=== PATIENT | female | born 1985 | race African-American/Black ===

== ENCOUNTER 2019-01-22 11:00 | Inpatient (IN) | payer OTHER ==
[2019-01-22 12:29] VITALS: BMI 29.8
[2019-01-22] MEDS ORDERED: OXYTOCIN 20 UNITS in 0.9% NS 20 UNIT/1,000 ML INFUS.BAG IV ONE ×2 (13:14→14:54)
[2019-01-22] MEDS ORDERED: PHENYLEPHRINE HCL 10 MG/1 ML SINGLE DOSE VIAL ONE ×2 (13:16)
[2019-01-22] MEDS ORDERED: ceFAZolin SODIUM 1 GM VIAL ONE ×2 (13:16)
[2019-01-22] MEDS ORDERED: morphine SULFATE/PF 0.5 MG/ML (2cc Syringe - QUVA) ONE (13:16)
[2019-01-22] MEDS ORDERED: SODIUM CHLORIDE 0.9% P/F 10 ML VIAL IJ ONE (13:19)
[2019-01-22] MEDS ORDERED: OXYTOCIN 10 UNITS/ML VIAL ONE ×2 (13:55→13:59)
[2019-01-22] MEDS ORDERED: KETOROLAC TROMETHAMINE 30 MG/1 ML VIAL ONE (14:00)
--- NOTE | 2019-01-22 14:25 | PN ---
Progress Note (short form) - Note Progress Note: I assisted Dr. Pascal in repeat c/s for the entirety of the case.
[2019-01-22] MEDS ORDERED: CITRIC ACID/SODIUM CITRATE 30 ML UNIT-DOSE CUP PO ONE (14:46)
--- NOTE | 2019-01-22 14:53 | HP ---
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: Other Cardiovascular: No: AFIB, Aneurysm, Aortic Insufficiency, Aortic Stenosis, CAD, CHF, Deep Vein Thrombosis, HTN, Hyperlipdemia, [place], Mitral Insufficiency, Mitral Stenosis, Murmur, Pulmonary Hypertension, Other Pulmonary: No: Asthma, Bronchitis, Cancer, COPD, O2 Dependent, Pneumonia, Previously Intubated, Pulmonary Embolus, Pulmonary Fibrosis, Sleep Apnea, Other Gastrointestinal: No: Ascites, Cancer, Constipation, Crohn's Disease, Diverticulitis, Diverticulosis, Esophageal Varices, Gastritis, GERD, GI Bleed, Hemorrhoids, Hiatal Hernia, Inflamatory Bowel Disease, Irritable Bowel Disease, Pancreatitis, Peptic Ulcer Disease, Ulcerative Colitis, Other Hepatobiliary: No: Cirrhosis, Cholelithiasis, Cholecystitis, Choledocholithiasis , Hepatitis A, Hepatitis B, Hepatitis C, Other Renal/: No: Renal Failure, Renal Inusuff, BPH, Cancer, Hematuria, Hemodialysis , Neurogenic Bladder, Renal Calculi, UTI, Other Reproductive: No: Ectopic , Endometriosis, Fibroids, PID, Polycystic Ovary Syndrome, Postmenopausal, Other ...: 2 ...Para: 1 ...Term: 1 ...: 0 ...Spon : 0 ...Induced : 0 ...Multiple Gestation: 0 ... Weeks Gestation by Dates: 39 ...EDC by Abrahan: 01/30/19 Heme/Onc: No: Anemia, B12 Deficiency, Bleeding Disorder, Cancer, Current Chemotherapy, Current Radiation Therapy, Hemochromatosis, Hypercoaguable State, Myeloproliferative Synd, Sickle Cell Disease, Sickle Cell Trait, Thrombocytopenia, Other Infectious Disease: No: AIDS, C-Diff, Herpes Zoster, HIV, MRSA, STD's, Tuberculosis, VREF, Other Psych: No: Addictions, Anxiety, Bipolar, Depression, Panic, Psychosis, Schizophrenia, Other Musculoskeletal: Yes: Other Rheumatology: Yes: Other ENT: No: Allergic Rhinitis, Sinusitis, Other Endocrine: No: Bandar's Disease, Lumberton's Disease, Diabetes Insipidus, Diabetes Mellitus, Hyperparathyroidism, Hyperthyroidism, Hypothyroidism, Osteopenia, SIADH, Other Dermatology: No: Basal Cell, Cellulitis, Eczema, Melanoma, Psoriasis, Squamous Cell, Other Additional Medical History: autoimmune disease - Past Surgical History Past Surgical History: Yes: Hx Myomectomy: No Hx Transabdominal Cerclage: No Additional Surgical History: feeding tube - Advance Directives Advance Directives: Yes: Living Will - Smoking History Smoking history: Never smoked Have you smoked in the past 12 months: No - Alcohol/Substance Use Hx Alcohol Use: No History of Substance Use: reports: None - Social History Usual Living Arrangement: Yes: With Spouse ADL: Independent History of Recent Travel: No Home Medications - Allergies Allergies/Adverse Reactions: Allergies Allergy/AdvReac Type Severity Reaction Status Date / Time No Known Allergies Allergy Verified 01/22/19 12:03 - Home Medications Home Medications: Ambulatory Orders Vit No.129/Iron/Folic [ One Daily Tablet] 1 each PO DAILY 01/22 Family Disease History - Family Disease History Family History: Denies Review of Systems - Review of Systems Constitutional: reports: No Symptoms Eyes: reports: No Symptoms HENT: reports: No Symptoms Neck: reports: No Symptoms Cardiovascular: reports: No Symptoms Respiratory: reports: No Symptoms Gastrointestinal: reports: No Symptoms Genitourinary: reports: No Symptoms Breasts: reports: No Symptoms Reported Musculoskeletal: reports: No Symptoms Integumentary: reports: No Symptoms Neurological: reports: Other Endocrine: reports: No Symptoms Hematology/Lymphatic: reports: No Symptoms Psychiatric: reports: No Symptoms Pain Intensity: 0 Physical Exam - Maternity Vital Signs: Vital Signs Temperature 97.9 F 01/22/19 12:10 Pulse Rate 103 H 01/22/19 12:10 Respiratory Rate 18 01/22/19 12:10 Blood Pressure 93/66 01/22/19 12:10 O2 Sat by Pulse Oximetry (%) Constitutional: Yes: Well Nourished, No Distress, Calm Eyes: Yes: WNL, Conjunctiva Clear, EOM Intact HENT: Yes: WNL, Atraumatic, Normocephalic Neck: Yes: WNL, Supple, Trachea Midline Cardiovascular: Yes: WNL, Regular Rate and Rhythm Lungs: Clear to auscultation Breast(s): Yes: WNL - Abdominal Exam/OB Fundal Height: 38 Number of Fetuses: Single Presentation: Vertex Contractions: Yes Regularity: Irregular Intensity: Mild Monitor Mode: External Heart Rate Location: [facility] Category: I Accelerations: Uniform Decelerations: None - Vaginal Exam/OB Vaginal Bleediing: No Speculum Exam: No Dilatation (cm): 1 Effacement (%): 20 Amniotic Membrane Status: Intact Presentation: Vertex/Position Station: -3 - Physical Exam Musculoskeletal: Yes: WNL Extremities: Yes: WNL Edema: No Integumentary: Yes: WNL Deep Tendon Reflex Grade: Normal +2 ...Motor Strength: WNL Psychiatric: Yes: WNL, Alert, Oriented Hemorrhage Risk Assessment - Risk Factors Medium Risk Factors: Yes: Prior , uterine surgery,or multiple laparotomies Risk Score: 1 Risk Level: Medium Risk Assessment/Plan for repeat lt c s
[2019-01-22] MEDS ORDERED: oxyCODONE HCL 5 MG TABLET PO PRN (14:54)
[2019-01-22] MEDS ORDERED: METHYLERGONOVINE MALEATE 0.2 MG/1 ML AMP IM PRN (14:54)
[2019-01-22] MEDS ORDERED: ELECTROLYTE-148 SOLN 1,000 ML IV SCH (15:00)
[2019-01-22] MEDS ORDERED: OXYTOCIN 20 UNITS in 0.9% NS 20 UNIT/1,000 ML INFUS.BAG IV SCH (15:00)
--- NOTE | 2019-01-22 15:00 | OP ---
Operative Note - Note: Operative Date: 01/22/19 Pre-Operative Diagnosis: repeat lt c s Operation: repeat lt c s Post-Operative Diagnosis: Same as Pre-op Surgeon: Josue Pascal Tapper Operator: Anjel Shelton Anesthesiologist/CONTAINER FINISHER: Rhiannon Pantoja Anesthesia: Spinal Estimated Blood Loss (mls): 650 Operative Report Dictated: Yes
[2019-01-22] MEDS ORDERED: ONDANSETRON 4 MG/2 ML VIAL IVPUSH PRN (16:33)
[2019-01-22] MEDS: IBUPROFEN 800 MG/8 ML IJ IVPB PRN (20:31)
[2019-01-23] MEDS: IBUPROFEN 800 MG/8 ML IJ IVPB PRN (03:58)
[2019-01-23 08:16] LABS: BASO % 0.3 % (0-2.0); HEMOGLOBIN 10.5 GM/dL (10.7-15.3); LYMPH % 8.6 % (8-40); MCH 26.4 pg (25.7-33.7); MCHC 31.9 g/dl (32.0-36.0); MEAN CELL VOLUME 82.8 fl (80-96); MEAN PLT VOLUME 7.2 fl (7.5-11.1); MONO % 5.7 % (3.8-10.2); NEUT % 84.4 % (42.8-82.8); PLATELET COUNT 248 K/MM3 (134-434); RBC 3.98 M/mm3 (3.60-5.2); RDW 19.4 % (11.6-15.6); WHITE BLOOD COUNT 12.6 K/mm3 (4.0-10.0)
[2019-01-23] MEDS: ENOXAPARIN NA (PORCINE) 40 MG/0.4 ML DISP.SYRIN SQ SCH (09:11)
[2019-01-23] MEDS: ACETAMINOPHEN 325 MG TABLET (FP) PO PRN ×4 (09:20→21:50)
[2019-01-23] MEDS: SIMETHICONE 80 MG TAB.CHEW (FP) PO PRN ×3 (09:22→20:46)
[2019-01-23] MEDS: oxyCODONE HCL 5 MG TABLET PO PRN ×3 (12:38→21:49)
[2019-01-23] MEDS ORDERED: BISACODYL 10 MG SUPP.RECT RC PRN (14:54)
--- NOTE | 2019-01-23 15:58 | PN ---
Progress Note (short form) - Note Progress Note: Anesthesiology post op note POD#1. S/P under spinal. Pat seen and examined. VSS. Ambulating. Started po analgetics. No apparent post anestesia complications.
--- NOTE | 2019-01-23 19:05 | PN ---
Post Progress Note Post Day: 1 Type of Delivery: Repeat C/S Vital Signs: Vital Signs Temperature 98.3 F 01/23/19 12:47 Pulse Rate 76 01/23/19 12:47 Respiratory Rate 20 01/23/19 12:47 Blood Pressure 119/65 01/23/19 12:47 O2 Sat by Pulse Oximetry (%) 100 01/22/19 14:50 Breast Exam: Yes: Soft Uterus: Yes: Fundus Firm, Fundus below umbilicus Incision: Yes: Sutures intact Abdomen/GI: Yes: Abdomen soft, Passing flatus, Tolerating PO Lochia: Yes: Serosa Lochia, amount: Small Extremities: Yes: Calves non-tender Activity: Ambulating - Labs Labs: CBC WBC 12.6 K/mm3 (4.0-10.0) H 01/23/19 06:45 RBC 3.98 M/mm3 (3.60-5.2) 01/23/19 06:45 Hgb 10.5 GM/dL (10.7-15.3) L 01/23/19 06:45 Hct 33.0 % (32.4-45.2) 01/23/19 06:45 MCV 82.8 fl (80-96) 01/23/19 06:45 MCH 26.4 pg (25.7-33.7) 01/23/19 06:45 MCHC 31.9 g/dl (32.0-36.0) L 01/23/19 06:45 RDW 19.4 % (11.6-15.6) H 01/23/19 06:45 Plt Count 248 K/MM3 (134-434) 01/23/19 06:45 MPV 7.2 fl (7.5-11.1) L 01/23/19 06:45 Absolute Neuts (auto) 10.7 K/mm3 (1.5-8.0) H 01/23/19 06:45 Neutrophils % 84.4 % (42.8-82.8) H 01/23/19 06:45 Lymphocytes % 8.6 % (8-40) D 01/23/19 06:45 Monocytes % 5.7 % (3.8-10.2) 01/23/19 06:45 Eosinophils % 1.0 % (0-4.5) 01/23/19 06:45 Basophils % 0.3 % (0-2.0) 01/23/19 06:45 Nucleated RBC % 0 % (0-0) 01/23/19 06:45 Assessment/Plan doing well, no complicatiopns , ambulating well
--- NOTE | 2019-01-23 19:10 | DS ---
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 Signs: Vital Signs Temperature 98.3 F 01/23/19 12:47 Pulse Rate 76 01/23/19 12:47 Respiratory Rate 20 01/23/19 12:47 Blood Pressure 119/65 01/23/19 12:47 O2 Sat by Pulse Oximetry (%) 100 01/22/19 14:50 Constitutional: Yes: Well Nourished, No Distress, Calm Eyes: Yes: WNL, Conjunctiva Clear, EOM Intact HENT: Yes: WNL, Atraumatic, Normocephalic Neck: Yes: WNL, Supple, Trachea Midline Cardiovascular: Yes: WNL, Regular Rate and Rhythm Respiratory: Yes: WNL, Regular, CTA Bilaterally Gastrointestinal: Yes: WNL, Normal Bowel Sounds, Soft ...Rectal Exam: Yes: WNL Renal/: Yes: WNL Pelvis: Yes: WNL External Genitalia: Yes: Normal Internal Exam Deferred: No Vaginal Exam: Yes: Normal Cervix: Yes: Normal Uterus: Yes: Normal Adnexa: Normal: Bilateral ....Post : Yes: Uterus firm, Uterus non-tender Breast(s): Yes: WNL Musculoskeletal: Yes: WNL Extremities: Yes: WNL Edema: Yes Edema: LUE: Trace, RUE: Trace, LLE: Trace, RLE: Trace Integumentary: Yes: WNL Wound/Incision: Yes: Clean/Dry, Well Approximated, Steri Strips Neurological: Yes: WNL, Alert, Oriented ...Motor Strength: WNL Psychiatric: Yes: WNL, Alert, Oriented Labs: CBC, BMP 01/23/19 06:45 Delivery - Delivery Section: Repeat Type of Anesthesia: Spinal EBL (cc): 600 Delivery, Single - Stages of Labor Date of Delivery: 01/22/19 Time of Delivery: 13:57 Time Placenta Delivered: 13:58 - Condition of Motion Study Engineer/Biomass Technician Present: No Infant Gender: Female Weight: 3.09 kg Position: Left, OA - 1 Minute Total Score: 9 5 Minutes Total Score: 9 - Feeding Plan Initial Plan: Elected not to breastfeed exclusively throughout hospitalization Discharge Summary Reason For Visit: C SECTION Condition: Stable - Instructions Diet, Activity, Other Instructions: regular Disposition: HOME - Home Medications Comprehensive Discharge Medication List: Ambulatory Orders Vit No.129/Iron/Folic [ One Daily Tablet] 1 each PO DAILY 01/22
--- NOTE | 2019-01-23 19:41 | OP ---
DATE OF OPERATION: 01/22/2019 PREOPERATIVE DIAGNOSIS: Repeat low transverse section. POSTOPERATIVE DIAGNOSIS: Repeat low transverse section. PROCEDURE: Repeat low transverse section. SURGEON: Josue Pascal MD DRIVE MAN: Anjel Shelton MD ANESTHESIA: Spinal by TONY Cm. INDICATION: This is a 33-year-old female patient, previous history of low transverse section, 39 weeks , is taken to the OR for repeat low transverse section. Patient has a history of autoimmune disease, was comatose once for a long period of time and was hospitalized in [facility], and the patient was cleared by neurologist to go through the surgery without worry. So, patient was cleared by anesthesiologist after consulting with neurologist before the with a phone call. Patient was placed on the operating table in supine position after spinal anesthesia was obtained. The patient's abdomen and pelvis were prepped and draped in the usual sterile manner. Following the same Pfannenstiel incision, incision was made through skin and subcutaneous tissue until the fascia was nicked in the midline. The fascia was extended bilaterally. Anterior peritoneal cavity was entered. Bladder flap was created. Low transverse segment of the uterus was entered. Baby delivered from LOT position. Baby was handed over to hand tacker after the umbilical cord doubly clamped and cut. Cord blood gases obtained. Placenta was removed. Uterus was closed in single layer, first layer interlocking Vicryl sutures. Good hemostasis. Both gutters cleaned. Both ovaries, fallopian tubes, and uterus were within normal limits. No complications. Tolerated the procedure well. Draining clear urine. Blood loss about 650 mL. Bladder flap was closed. Peritoneum was closed. Fascia was closed. The skin was closed. Draining clear urine and both gutters were clean. No was seen in the abdomen. No bleeding. Good hemostasis. Transferred to recovery room in stable condition. MD CRIS KEARNEY/[id number]
[2019-01-23] MEDS: IBUPROFEN 600 MG TABLET (FP) PO PRN (20:46)
[2019-01-24] MEDS: oxyCODONE HCL 5 MG TABLET PO PRN ×5 (02:19→22:18)
[2019-01-24] MEDS: SIMETHICONE 80 MG TAB.CHEW (FP) PO PRN ×2 (02:19→22:18)
[2019-01-24] MEDS: ACETAMINOPHEN 325 MG TABLET (FP) PO PRN ×5 (02:19→22:18)
[2019-01-24] MEDS: ENOXAPARIN NA (PORCINE) 40 MG/0.4 ML DISP.SYRIN SQ SCH (09:25)
[2019-01-24] MEDS: IBUPROFEN 600 MG TABLET (FP) PO PRN (15:41)
[2019-01-25] MEDS: oxyCODONE HCL 5 MG TABLET PO PRN ×2 (03:01→07:53)
[2019-01-25] MEDS: SIMETHICONE 80 MG TAB.CHEW (FP) PO PRN ×5 (03:01→22:21)
[2019-01-25] MEDS: ACETAMINOPHEN 325 MG TABLET (FP) PO PRN ×5 (03:02→22:20)
[2019-01-25 07:51] LABS: BASO % 0.5 % (0-2.0); EOS % 2.1 % (0-4.5); HEMATOCRIT 31.5 % (32.4-45.2); HEMOGLOBIN 10.1 GM/dL (10.7-15.3); LYMPH % 17.4 % (8-40); MCH 26.7 pg (25.7-33.7); MCHC 32.2 g/dl (32.0-36.0); MEAN CELL VOLUME 82.9 fl (80-96); MEAN PLT VOLUME 6.7 fl (7.5-11.1); MONO % 7.9 % (3.8-10.2); NEUT % 72.1 % (42.8-82.8); PLATELET COUNT 262 K/MM3 (134-434); RBC 3.81 M/mm3 (3.60-5.2); RDW 18.9 % (11.6-15.6); WHITE BLOOD COUNT 8.3 K/mm3 (4.0-10.0)
[2019-01-25] MEDS: ENOXAPARIN NA (PORCINE) 40 MG/0.4 ML DISP.SYRIN SQ SCH (09:40)
--- NOTE | 2019-01-25 13:15 | PN ---
Post Progress Note Post Day: 3 Type of Delivery: Repeat C/S Vital Signs: Vital Signs Temperature 97.7 F 01/25/19 10:00 Pulse Rate 73 01/25/19 10:00 Respiratory Rate 18 01/25/19 10:00 Blood Pressure 124/70 01/25/19 10:00 O2 Sat by Pulse Oximetry (%) 100 01/22/19 14:50 Breast Exam: Yes: Soft Uterus: Yes: Fundus Firm, Fundus below umbilicus Incision: Yes: Dressing dry and intact, Sutures intact Abdomen/GI: Yes: Abdomen soft, Passing flatus, Tolerating PO Lochia: Yes: Serosa Lochia, amount: Small Extremities: Yes: Calves non-tender Perineum: Yes: Intact Activity: Ambulating - Labs Labs: CBC WBC 8.3 K/mm3 (4.0-10.0) 01/25/19 07:05 RBC 3.81 M/mm3 (3.60-5.2) 01/25/19 07:05 Hgb 10.1 GM/dL (10.7-15.3) L 01/25/19 07:05 Hct 31.5 % (32.4-45.2) L 01/25/19 07:05 MCV 82.9 fl (80-96) 01/25/19 07:05 MCH 26.7 pg (25.7-33.7) 01/25/19 07:05 MCHC 32.2 g/dl (32.0-36.0) 01/25/19 07:05 RDW 18.9 % (11.6-15.6) H 01/25/19 07:05 Plt Count 262 K/MM3 (134-434) 01/25/19 07:05 MPV 6.7 fl (7.5-11.1) L 01/25/19 07:05 Absolute Neuts (auto) 6.0 K/mm3 (1.5-8.0) 01/25/19 07:05 Neutrophils % 72.1 % (42.8-82.8) 01/25/19 07:05 Lymphocytes % 17.4 % (8-40) D 01/25/19 07:05 Monocytes % 7.9 % (3.8-10.2) 01/25/19 07:05 Eosinophils % 2.1 % (0-4.5) D 01/25/19 07:05 Basophils % 0.5 % (0-2.0) 01/25/19 07:05 Nucleated RBC % 0 % (0-0) 01/25/19 07:05 Assessment/Plan dc pt home today, fu in 2 weeks
--- NOTE | 2019-01-25 13:16 | DS ---
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 Vital Signs: Vital Signs Temperature 97.7 F 01/25/19 10:00 Pulse Rate 73 01/25/19 10:00 Respiratory Rate 18 01/25/19 10:00 Blood Pressure 124/70 01/25/19 10:00 O2 Sat by Pulse Oximetry (%) 100 01/22/19 14:50 Constitutional: Yes: Well Nourished, No Distress, Calm Eyes: Yes: WNL, Conjunctiva Clear, EOM Intact HENT: Yes: WNL, Atraumatic, Normocephalic Neck: Yes: WNL, Supple, Trachea Midline Cardiovascular: Yes: WNL, Regular Rate and Rhythm Respiratory: Yes: WNL, Regular, CTA Bilaterally Gastrointestinal: Yes: WNL, Normal Bowel Sounds, Soft ...Rectal Exam: Yes: WNL Renal/: Yes: WNL Pelvis: Yes: WNL External Genitalia: Yes: Normal Internal Exam Deferred: No Vaginal Exam: Yes: Normal Cervix: Yes: Normal Uterus: Yes: Normal Adnexa: Normal: Bilateral ....Post : Yes: Uterus firm, Uterus non-tender Breast(s): Yes: WNL Musculoskeletal: Yes: WNL Extremities: Yes: WNL Edema: No Integumentary: Yes: WNL Wound/Incision: Yes: Clean/Dry, Well Approximated Neurological: Yes: WNL, Alert, Oriented ...Motor Strength: WNL Psychiatric: Yes: WNL, Alert, Oriented Labs: CBC, BMP 01/25/19 07:05 Delivery - Delivery Section: Repeat Type of Anesthesia: Spinal EBL (cc): 600 Delivery, Single - Stages of Labor Date of Delivery: 01/22/19 Time of Delivery: 13:57 Time Placenta Delivered: 13:58 - Condition of Infant Hoof And 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
[2019-01-25] MEDS ORDERED: oxyCODONE HCL 5 MG TABLET PO PRN ×2 (14:54)
[2019-01-25] MEDS: IBUPROFEN 600 MG TABLET (FP) PO PRN ×2 (17:44→22:20)
[2019-01-25 21:34] VITALS: TEMP 98.1
[2019-01-25] MEDS ORDERED: SENNOSIDES/DOCUSATE COMBO (SENNA PLUS) TABLET (UD) PO PRN (22:14)
[2019-01-26] MEDS: SIMETHICONE 80 MG TAB.CHEW (FP) PO PRN (07:07)
[2019-01-26] MEDS: IBUPROFEN 600 MG TABLET (FP) PO PRN (07:07)
[2019-01-26] MEDS: ACETAMINOPHEN 325 MG TABLET (FP) PO PRN (07:07)
[2019-01-26] MEDS: ENOXAPARIN NA (PORCINE) 40 MG/0.4 ML DISP.SYRIN SQ SCH (09:52)
[2019-01-26 10:26] VITALS: BP 132/70; PULSE 60
--- NOTE | 2019-01-26 10:47 | PN ---
Post Progress Note Post Day: 4 Type of Delivery: Repeat C/S Vital Signs: Vital Signs Temperature 98.1 F 01/26/19 10:00 Pulse Rate 60 01/26/19 10:00 Respiratory Rate 18 01/26/19 10:00 Blood Pressure 132/70 01/26/19 10:00 O2 Sat by Pulse Oximetry (%) 100 01/22/19 14:50 Breast Exam: Yes: Soft Uterus: Yes: Fundus Firm, Fundus below umbilicus Incision: Yes: Dressing dry and intact Abdomen/GI: Yes: Abdomen soft, Passing flatus, Tolerating PO Lochia: Yes: Serosa Lochia, amount: Small Extremities: Yes: Calves non-tender Activity: Ambulating - Labs Labs: CBC WBC 8.3 K/mm3 (4.0-10.0) 01/25/19 07:05 RBC 3.81 M/mm3 (3.60-5.2) 01/25/19 07:05 Hgb 10.1 GM/dL (10.7-15.3) L 01/25/19 07:05 Hct 31.5 % (32.4-45.2) L 01/25/19 07:05 MCV 82.9 fl (80-96) 01/25/19 07:05 MCH 26.7 pg (25.7-33.7) 01/25/19 07:05 MCHC 32.2 g/dl (32.0-36.0) 01/25/19 07:05 RDW 18.9 % (11.6-15.6) H 01/25/19 07:05 Plt Count 262 K/MM3 (134-434) 01/25/19 07:05 MPV 6.7 fl (7.5-11.1) L 01/25/19 07:05 Absolute Neuts (auto) 6.0 K/mm3 (1.5-8.0) 01/25/19 07:05 Neutrophils % 72.1 % (42.8-82.8) 01/25/19 07:05 Lymphocytes % 17.4 % (8-40) D 01/25/19 07:05 Monocytes % 7.9 % (3.8-10.2) 01/25/19 07:05 Eosinophils % 2.1 % (0-4.5) D 01/25/19 07:05 Basophils % 0.5 % (0-2.0) 01/25/19 07:05 Nucleated RBC % 0 % (0-0) 01/25/19 07:05 Assessment/Plan dc pt home today
== END 2019-01-26 12:15 | disposition home or self-care (01) | DRG 788 ==
LOC: JLDR 11:00 → J3W 16:45
PROVIDERS: ADMIT Obstetrics & Gynecology; ATTEND Obstetrics & Gynecology
PROC: 10D00Z1 Extraction of Products of Conception, Low, Open Approach (ICD-10-PCS; principal; 2019-01-22)
DX: O34.211 Maternal care for low transverse scar from previous cesarean delivery (principal); Z3A.39 39 weeks gestation of pregnancy; Z37.0 Single live birth
CPT/HCPCS: 36415; 85025

== ENCOUNTER 2020-09-01 10:19 | Inpatient (IN) | payer OTHER ==
[2020-09-01 12:09] VITALS: BMI 26.6
[2020-09-01] MEDS ORDERED: ONDANSETRON 4 MG/2 ML VIAL IVPUSH PRN (12:59)
[2020-09-01] MEDS ORDERED: PHENYLEPHRINE HCL 10 MG/1 ML SINGLE DOSE VIAL ONE (13:10)
[2020-09-01] MEDS ORDERED: morphine SULFATE/PF 0.5 MG/ML (2cc Syringe - QUVA) ONE (13:10)
[2020-09-01] MEDS: OXYTOCIN 20 UNITS in 0.9% NS 20 UNIT/1,000 ML INFUS.BAG IV SCH (13:40)
[2020-09-01] MEDS ORDERED: MIDAZOLAM HCL 2 MG/2 ML SINGLE DOSE VIAL ONE (13:45)
[2020-09-01] MEDS ORDERED: OXYTOCIN 10 UNITS/ML VIAL ONE ×2 (13:46)
[2020-09-01] MEDS ORDERED: CITRIC ACID/SODIUM CITRATE 30 ML UNIT-DOSE CUP PO ONE (14:29)
[2020-09-01] MEDS ORDERED: ELECTROLYTE-148 SOLN 500 ML IV ONE (14:29)
[2020-09-01] MEDS ORDERED: ELECTROLYTE-148 SOLN 1,000 ML IV SCH (14:30)
[2020-09-01] MEDS ORDERED: SENNOSIDES/DOCUSATE COMBO (SENNA PLUS) TABLET (UD) PO PRN (14:30)
[2020-09-01] MEDS ORDERED: METHYLERGONOVINE MALEATE 0.2 MG/1 ML AMP IM PRN (14:30)
[2020-09-01] MEDS ORDERED: DEXTROSE 5%-LACTATED RINGERS 1,000 ML IV SCH (14:30)
[2020-09-01] MEDS ORDERED: IBUPROFEN 600 MG TABLET (FP) PO PRN (14:30)
[2020-09-01] MEDS ORDERED: ACETAMINOPHEN 325 MG TABLET (FP) PO PRN (14:30)
[2020-09-01] MEDS: IBUPROFEN 800 MG/8 ML IJ IVPB PRN (15:00)
[2020-09-01] MEDS ORDERED: IBUPROFEN 800 MG/8 ML IJ IVPB ONE (15:04)
[2020-09-01] MEDS: ACETAMINOPHEN 1000 MG/100 ML VIAL (NON FORMULARY) IVPB PRN (21:13)
[2020-09-02] MEDS: ACETAMINOPHEN 1000 MG/100 ML VIAL (NON FORMULARY) IVPB PRN (04:08)
[2020-09-02] MEDS: IBUPROFEN 800 MG/8 ML IJ IVPB PRN (08:28)
[2020-09-02] MEDS: OXYTOCIN 20 UNITS in 0.9% NS 20 UNIT/1,000 ML INFUS.BAG IV SCH (08:33)
[2020-09-02 09:55] LABS: BASO % 0.2 % (0-2.0); EOS % 0.4 % (0-4.5); HEMATOCRIT 31.9 % (32.4-45.2); HEMOGLOBIN 10.6 GM/dL (10.7-15.3); LYMPH % 10.6 % (8-40); MCH 30.6 pg (25.7-33.7); MCHC 33.4 g/dl (32.0-36.0); MEAN CELL VOLUME 91.7 fl (80-96); MEAN PLT VOLUME 7.6 fl (7.5-11.1); MONO % 5.3 % (3.8-10.2); NEUT % 83.5 % (42.8-82.8); PLATELET COUNT 263 K/MM3 (134-434); RBC 3.47 M/mm3 (3.60-5.2); RDW 15.2 % (11.6-15.6); WHITE BLOOD COUNT 12.2 K/mm3 (4.0-10.0)
[2020-09-02] MEDS: PRENATAL VITAMINS W/ FOLIC ACID TABLET (FP) PO SCH (11:24)
[2020-09-02] MEDS: IBUPROFEN 600 MG TABLET (FP) PO PRN ×2 (14:27→20:55)
[2020-09-02] MEDS: ACETAMINOPHEN 325 MG TABLET (FP) PO PRN (14:28)
[2020-09-02] MEDS: SIMETHICONE 80 MG TAB.CHEW (FP) PO PRN ×2 (14:28→20:54)
[2020-09-02] MEDS ORDERED: BISACODYL 10 MG SUPP.RECT RC PRN (14:30)
[2020-09-02] MEDS: oxyCODONE HCL 5 MG TABLET PO PRN ×2 (15:40→20:56)
[2020-09-03] MEDS: IBUPROFEN 600 MG TABLET (FP) PO PRN ×3 (01:01→14:04)
[2020-09-03] MEDS: SIMETHICONE 80 MG TAB.CHEW (FP) PO PRN ×4 (01:01→14:04)
[2020-09-03] MEDS: oxyCODONE HCL 5 MG TABLET PO PRN ×4 (01:04→16:11)
[2020-09-03] MEDS: PRENATAL VITAMINS W/ FOLIC ACID TABLET (FP) PO SCH (09:14)
[2020-09-03] MEDS: ACETAMINOPHEN 325 MG TABLET (FP) PO PRN ×2 (09:15→14:05)
[2020-09-03 09:30] VITALS: BP 127/68; PULSE 78; TEMP 97.9
== END 2020-09-03 17:05 | disposition home or self-care (01) | DRG 788 ==
LOC: JLDR 10:19 → J3W 15:44
PROVIDERS: ADMIT Obstetrics & Gynecology; ATTEND Obstetrics & Gynecology
PROC: 10D00Z1 Extraction of Products of Conception, Low, Open Approach (ICD-10-PCS; principal; 2020-09-01)
DX: O34.211 Maternal care for low transverse scar from previous cesarean delivery (principal); Z3A.39 39 weeks gestation of pregnancy; Z37.0 Single live birth
CPT/HCPCS: 36415; 80053; 85025; 85610; 85730; 86780; 86850; 86900; 86901; 88307-TC; C9803; J0131; U0003; U0005